=== PATIENT | female | born 1975 | race Caucasian/White ===

== ENCOUNTER 2017-04-16 09:47 | Emergency (ER) | payer BC ==
[~2017-04-16 09:47] MED LIST: ACETAMINOPHEN500 M3 PO; ATARAX PO; BENADRYL25 M1 PO; BENTYL10 MG PO; BENTYL20 MG PO; BUSPIRONE HCL7.5 MG PO; CELEXA10 MG PO; CIPRO PO; COMPAZINE5 M1 PR; DOXYCYCLINE PO; FAMOTIDINE PO; FAMOTIDINE20 MG PO; FLAGYL PO; FLEXERIL PO; FLEXERIL10 MG PO; HYDROCODON-ACE1 EAC9 PO; IBUPROFEN200 M1; LORTAB 10-5001 EACH; LORTAB 7.5-5001 TAB PO; MEDROL DOSEPAK4 MG PO; MOTRIN400 MG PO; NO MEDICATIONS; NORCO 10/325 TA1 TAB; OMEPRAZOLE20 M2 PO; OMEPRAZOLE40 M1 PO; PHENERGAN; PHENERGAN PO; PHENERGAN12.5 MG PO; PHENERGAN25 M1 PO; PHENERGAN25 MG PO; PRILOSEC PO; PRILOSEC20 MG PO; PROTONIX PO; RONDEC DROPS30 ML PO; STERAPRED5 MG/DOSE1 PO; SUBOXONE 8 MG-1 EAC1 SL; SULFAMETHOXAZO1 EACH PO; TRAMADOL HCL50 M1 PO; TRAMADOL HCL50 M2 PO; ULTRAM PO; VICODIN 5/500 T1 TAB PO; VISTARIL50 MG PO; VOLTAREN75 MG PO; ZOFRAN ODT4 MG PO; ZOFRAN PO
[2017-04-16] MEDS ORDERED: BENTYL10 MG (09:54)
== END 2017-04-16 11:59 | disposition home or self-care (01) ==
LOC: SED 09:47
DX: S39.012A Strain of muscle, fascia and tendon of lower back, initial encounter (principal); F17.200 Nicotine dependence, unspecified, uncomplicated; Z88.2 Allergy status to sulfonamides; W18.30XA Fall on same level, unspecified, initial encounter
CPT/HCPCS: 96372; 99283; J1885